=== PATIENT | female | born 1975 | race Caucasian/White ===

== ENCOUNTER 2016-12-15 14:21 | Inpatient (IN) | payer OTHER ==
[~2016-12-15] VITALS: Ht 157.5 cm; Wt 77.3 kg
[~2016-12-15 14:21] MED LIST: PREN1TAB49
[2016-12-15 15:27] LABS: ADD SCAN DIFF NO
[2016-12-15 15:29] LABS: BASOPHILS % 0.3 % (0.0-2.0); EOSINOPHILS # 0.1 10^3/ul (0.0-0.5); EOSINOPHILS % 0.9 % (0.0-7.0); LYMPHOCYTES % 22.9 % (15.0-51.0); MEAN CORPUSCULAR HEMOGLOBIN 31.5 pg (29.0-33.0); MEAN CORPUSCULAR HGB CONC 34.2 g/dl (32.0-37.0); MEAN PLATELET VOLUME 8.7 fl (7.4-10.4); MONOCYTE # 0.6 10^3/ul (0.3-0.9); MONOCYTES % 6.8 % (0.0-11.0); NEUTROPHIL # 5.8 10^3/ul (1.6-7.5); NEUTROPHILS % 66.5 % (39.0-77.0); PLATELET COUNT 260 10^3/UL (140-415); RED BLOOD COUNT 4.13 10^6/ul (4.20-5.40); RED CELL DISTRIBUTION WIDTH 13.5 % (11.5-14.5); WHITE BLOOD COUNT 8.7 10^3/ul (4.8-10.8)
[2016-12-15 15:32] LABS: ADD UMIC YES; URINE BILIRUBIN (Dip) NEGATIVE (NEGATIVE); URINE BLOOD (Dip) 1+ (NEGATIVE); URINE COLOR LT. YELLOW (YELLOW); URINE GLUCOSE (Dip) NEGATIVE (NEGATIVE); URINE KETONES (Dip) NEGATIVE (NEGATIVE); URINE LEUKOCYTE ESTERASE (Dip) 3+ (NEGATIVE); URINE NITRITE (Dip) NEGATIVE (NEGATIVE); URINE TOTAL PROTEIN (Dip) NEGATIVE (NEGATIVE); URINE UROBILINOGEN (Dip) 0.2 E.U./dL (0.1-1.0)
[2016-12-15 15:40] LABS: INR 0.9; PARTIAL THROMBOPLASTIN TIME 24.4 Sec (25.0-35.0); PROTIME 12.1 Sec (12.2-14.2); PT RATIO 0.9
[2016-12-15 15:46] LABS: ALBUMIN 3.1 g/dl (3.3-4.9)
[2016-12-15 15:47] LABS: POTASSIUM 3.8 mmol/L (3.5-5.1)
[2016-12-15 15:49] LABS: ALBUMIN/GLOBULIN RATIO 0.88; BILIRUBIN,INDIRECT 0.2 mg/dl (0-1.1); BILIRUBIN,TOTAL 0.2 mg/dl (0.2-1.3); CREATININE 0.44 mg/dl (0.44-1.00); TOTAL PROTEIN 6.6 g/dl (6.1-8.1)
[2016-12-15 15:50] LABS: CALCIUM 8.7 mg/dl (8.4-10.2); URIC ACID 5.5 mg/dl (3.1-7.9)
[2016-12-15 15:57] LABS: BACTERIA,URINE MODERATE; SQUAMOUS EPITHELIAL CELL,UR MANY
--- NOTE | 2016-12-15 16:02 | RADRPT ---
PROCEDURE: OB ultrasound for biophysical profile CLINICAL INDICATION: 90 induced hypertension. TECHNIQUE: Multiple sonographic images of the pelvis were obtained. Transabdominal view of the gr avid uterus are available for review. The images were reviewed on a PACS workstation. COMPARISON: OB ultrasound 12/09/2016 FINDINGS: breathing movement = 2/2 tone = 2/2 motion = 2/2 ROMMEL = 2/2 ROMMEL = 22.2 cm, consistent with borderline polyhydramnios. Single live intrauterine with cardiac activity. heart rate equals 148 beats p er minute. Presentation is cephalic. The placenta is anterior. IMPRESSION: 1. Single viable intrauterine gestation. 2. Biophysical profile = 8. 3. ROMMEL = 22.2 cm, consistent with borderline polyhydramnios. RPTAT: KK .Alexey Moore MD, Date Time Electronically viewed and signed by .Alexey Moore MD, MD on 12/15/2016 16:02 .B/
--- NOTE | 2016-12-15 16:04 | RADRPT ---
PROCEDURE: US OB - Limited weight. CLINICAL INDICATION: induced hypertension TECHNIQUE: Multiple sonographic images of the pelvis were obtained. Transabdominal imaging only w as performed. The images were reviewed on a PACS workstation. COMPARISON: OB ultrasound 12/09/2016 FINDINGS: There is a single viable intrauterine gestation. Cardiac activity is present with 157 beats per min mendy. There is a cephalic presentation. Measurements were made in order to determine age. The results are as follows: BPD = 8.68 cm HC = 31.56 cm AC = 37.89 cm FL = 7.3 .cm Estimated gestational age of approximately 37 weeks 4 days +/ - 2 weeks 4 days by ultrasound evalua tion The estimated date of delivery is 01/01/2017 by ultrasound evaluation. The EFW = 3745 +/- 561.7 (89.2%). The placenta is anterior. IMPRESSION: 1. Single viable intrauterine gestation of approximately 37 weeks 4 days gestation with estimated d ate of delivery of 01/01/2017 by ultrasound evaluation. 2. The estimated weight is 3745 (89.2%) . RPTAT: KK .Alexey Moore MD, Date Time Electronically viewed and signed by .Alexey Moore MD, MD on 12/15/2016 16:04 .B/
--- NOTE | 2016-12-15 16:24 | TRIAGE ---
OB Triage Datetime Report Generated by CPN: 12/15/2016 16:23 Datetime: 12/15/2016 15:20 DTR's/Clonus: DTRs 2+; No Clonus Headache: Denies Labor Evaluation Frequency: 5-6 Monitor Mode: External Duration (sec)2399: 60-70 Quality: Mild Pattern: Normal: <= 5 Contractions in 10 Minutes Resting Tone [place]: Relaxed Heart Rate FHR Baseline Rate: 150 Monitor Mode: External US FHR Baseline Changes: No Baseline Change Variability: Moderate 6-25 bpm Accelerations: 15X15 Decelerations: None Category: Category I Membrane Status: Intact Datetime: 12/15/2016 14:53 Vaginal Exam Dilatation (cms): 1.0 Effacement (%): 50 Station: -3 Exam By: LEXX SUAREZ Vaginal Bleeding: None Cervix, Consistency: Firm Cervix, Position: Posterior Presentation 'A': Unable to Assess Lie 'A': Unable to Assess Datetime: 12/15/2016 14:52 Stage of : OB Triage Maternal Assessment Level of Consciousness: Fully Conscious DTR's/Clonus: DTRs 2+; No Clonus Headache: Denies Blurred Vision: No Respiratory Effort: Unlabored Breath Sounds, Left: Clear and Equal Breath Sounds, Right: Clear and Equal Nausea/Vomiting: Denies RUQ Epigastric Pain: Denies Facial Edema: None Labor Evaluation Frequency: 0 Monitor Mode: External Duration (sec)2399: 0 Resting Tone [place]: Relaxed Heart Rate FHR Baseline Rate: 150 Monitor Mode: External US FHR Baseline Changes: No Baseline Change Variability: Moderate 6-25 bpm Accelerations: 15X15 Decelerations: None Category: Category I Pain Assessment Pain Scale: 0 Pain Presence: None/Denies Pain Type: N/A Pain Goal: 0 Pain Relief Measures: Comfort Measures Membrane Status: Intact Datetime: 12/15/2016 14:45 Time of Arrival: 12/15/2016 14:15 EGA: 38.0 Arrived By: Wheelchair Arrived From: Office Chief Complaint: R/O PIH Movement: Present Contractions: Denies/Absent Rupture of Membranes: Denies Vaginal Bleeding: None Vaginal Discharge: Denies Recent Sexual Intercouse: Denies Abdominal Trauma: Not Applicable Patient Complaints: None Time Provider Notified: 12/15/2016 14:45 Provider Notified: MAXI
[2016-12-15] MEDS ORDERED: LACTATED RINGER'S 1,000 ML IV PRN (17:30)
[2016-12-15] MEDS ORDERED: BUTORPHANOL 2 MG INJ IV PRN (18:30)
[2016-12-15] MEDS ORDERED: CARBOPROST 250 MCG INJ IM PRN (18:30)
[2016-12-15] MEDS ORDERED: LIDOCAINE 1% (MPF) 30 ML INJ INJ PRN (18:30)
[2016-12-15] MEDS ORDERED: MISOPROSTOL 200 MCG TAB PR PRN (18:30)
[2016-12-15] MEDS ORDERED: METHYLERGONOVINE 0.2 MG INJ IM PRN (18:30)
[2016-12-15] MEDS ORDERED: AMPICILLIN 2 GM/NS (PMX) 100 ML IV ONE (18:30)
[2016-12-15] MEDS ORDERED: OXYTOCIN 30 UNITS/LR 500 ML IV PRN (18:30)
[2016-12-15] MEDS ORDERED: OXYTOCIN 30 UNITS/LR 500 ML IV SCH ×2 (18:30)
[2016-12-15] MEDS: LACTATED RINGER'S 1,000 ML IV SCH (18:39)
[2016-12-15 18:46] VITALS: Ht 157.5 cm; Wt 77.3 kg
[2016-12-15 18:47] VITALS: BP 129/72; PULSE 83; RESP 18
[2016-12-15] MEDS: AMPICILLIN 1 GM/NS (PMX) 50 ML IV SCH (22:50)
[2016-12-16] MEDS: OXYTOCIN 30 UNITS/LR 500 ML IV SCH (00:55)
[2016-12-16] MEDS: LACTATED RINGER'S 1,000 ML IV SCH ×3 (02:12→19:45)
[2016-12-16] MEDS ORDERED: FENTAnyl 2MCG/ML-ROPIV 0.2% 100 ML ONE (02:27)
[2016-12-16] MEDS: AMPICILLIN 1 GM/NS (PMX) 50 ML IV SCH ×4 (02:33→12:52)
[2016-12-16] MEDS ORDERED: ONDANSETRON 4 MG INJ IV PRN ×2 (03:00)
[2016-12-16] MEDS ORDERED: NALOXONE (0.4 MG/ML) INJ IV PRN ×2 (03:00)
[2016-12-16] MEDS ORDERED: DIPHENHYDRAMINE 50 MG INJ IV PRN ×2 (03:00)
[2016-12-16] MEDS ORDERED: FENTAnyl 2MCG/ML-ROPIV 0.2% 100 ML BAG EPI SCH (03:00)
[2016-12-16] MEDS: FENTAnyl 2MCG/ML-ROPIV 0.2% 100 ML BAG EPI SCH ×2 (09:48→17:03)
[2016-12-17] MEDS: FENTAnyl 2MCG/ML-ROPIV 0.2% 100 ML BAG EPI SCH ×2 (01:15→09:17)
[2016-12-17] MEDS: LACTATED RINGER'S 1,000 ML IV SCH ×3 (03:47→19:43)
[2016-12-17] MEDS ORDERED: IBUPROFEN 600 MG TAB PO PRN (09:00)
[2016-12-17 14:02] LABS: BARBITURATES Negative (NEGATIVE); BENZODIAZEPINES Negative (NEGATIVE); CANNABINOIDS Negative (NEGATIVE); COCAINE Negative (NEGATIVE); OPIATES Negative (NEGATIVE)
[2016-12-17] MEDS: OXYTOCIN 30 UNITS/LR 500 ML IV SCH ×2 (14:31→17:40)
--- NOTE | 2016-12-17 14:35 | LDN ---
Date/Time of Note Date/Time of Note DATE: 12/17/16 TIME: 14:30 Delivery Summary Normal spontaneous vaginal delivery of baby girl from OA position shoulders delivered without difficulty posterior shoulder for then anterior shoulder the rest of the baby's body followed, cord clamp after stopped pulsation placenta spontaneous expulsion, inspected complete, no perineal laceration estimated blood loss 200 mL Placenta Delivered: Spontaneously Meconium: none Perineum intact?: Yes Anesthesia type: Epidural Sponge & Needle done & correct: Yes All needle counts correct: Yes Any foreign bodies felt in the: No Problems: Infant Delivery Information Sex Infant Sex: female Apgars 1 Minute: 9 5 Minute: 9 Suctioning Nose & mouth suctioned at nik: Yes Delee suction performed: No Umbilical Cord Umbilical cord with: 3 Vessels Cord Blood was obtained: Yes YUMIKO GERMAN MD Dec 17, 2016 14:34
--- NOTE | 2016-12-17 14:51 | HP ---
Date/Time of Note Date/Time of Note DATE: 12/17/16 TIME: 14:35 OB - History Hx of Present Free Text/Dictation 41 years old female 5 para 4 admitted to [facility] at 38 weeks gestation to rule out PIH laboratory work for - induced hypertension within normal since patient was experiencing total body itching mostly lower half of the body possibility of cholestasis of was discussed with her, induction of labor recommended ,all her questions answered then she transferred to labor and delivery room for induction. Chief Complaint: 38 weeks suspected PIH possible cholestasis of Estimated Due Date: Dec 29, 2016 : 5 Para: 4 Care: Good Care Ultrasounds: Normal mid trimester US Obstetrical Complications: Gestational Diabetes Medical Complications: None Past Family/Social History * Past Medical, Surgical, Family and Obstetric Histories reviewed from chart. Rubella: immune RPR/VDRL: Negative GBS Status: Negative HBsAG: Negative OB Admission Exam Vital Signs Vital Signs Vital Signs Date Time Temp Pulse Resp B/P Pulse Ox O2 Delivery O2 Flow Rate FiO2 12/15/16 18:47 98.6 83 18 129/72 Room Air Physical Exam HEENT: WNL Heart: Rhythm Normal Lungs: Clear, Equal Abdomen: WNL Extremities: Normal Reflexes: Normal Cervical Dilatation: 1cm Effacement: 50% Station: -3 Membranes: Intact Accelerations: Accelerations Present Decelerations: No Decelerations Varibility: Absent Last 72 hourBlood Glucose Bedside Glucose - 72 Hours Test 12/15/16 19:42 12/15/16 23:30 12/16/16 03:37 12/16/16 07:40 Bedside Glucose 102mg/dL (70-220) 100mg/dL (70-220) 108mg/dL (70-220) 102mg/dL (70-220) Test 12/16/16 11:50 12/16/16 19:36 12/17/16 01:44 12/17/16 07:39 Bedside Glucose 103mg/dL (70-220) 103mg/dL (70-220) 116mg/dL (70-220) 114mg/dL (70-220) Test 12/17/16 11:28 Bedside Glucose 120mg/dL (70-220) Last 72 hours Lab Results CBC & BMP 12/15/16 15:12 Liver Function Test 12/15/16 15:12 Alanine Aminotransferase (ALT/SGPT) 17 Albumin 3.1 L Alkaline Phosphatase 188 H Aspartate Amino Transf (AST/SGOT) 20 Direct Bilirubin 0.00 Total Protein 6.6 OB Assessment/Plan Reason for admission: induction of labor YUMIKO GERMAN MD Dec 17, 2016 14:45
[2016-12-17 15:14] LABS: RUBELLA ANTIBODY - IGG 2.13 index
[2016-12-17 16:45] VITALS: BP 138/67; PULSE 85; RESP 18
[2016-12-17] MEDS ORDERED: ACETAMINOPHEN/CODEINE #3 TAB PO PRN ×2 (17:00)
[2016-12-17] MEDS ORDERED: DIBUCAINE 1% 30 GM OINT PR PRN (17:00)
[2016-12-17] MEDS ORDERED: ACETAMINOPHEN 325 MG TAB PO PRN (17:00)
[2016-12-17] MEDS ORDERED: LANOLIN 7 GM TUBE TOP PRN (17:00)
[2016-12-17] MEDS ORDERED: WITCH HAZEL/GLYCERIN PAD PR PRN (17:00)
[2016-12-17] MEDS ORDERED: ONDANSETRON 4 MG INJ IV PRN (17:00)
[2016-12-17] MEDS ORDERED: BENZOCAINE 20% 56 ML SPRAY TOP PRN (17:00)
[2016-12-17] MEDS ORDERED: OXYCODONE/ASPIRIN (4.88/325) TAB PO PRN ×2 (17:00)
[2016-12-17] MEDS: IBUPROFEN 600 MG TAB PO SCH (17:50)
[2016-12-17 19:40] VITALS: BP 138/66; PULSE 82; RESP 18
[2016-12-17] MEDS: SENNA/DOCUSATE NA (8.6MG/50MG) TAB PO SCH (20:38)
[2016-12-18 00:05] VITALS: BP 132/68; RESP 18
[2016-12-18] MEDS: IBUPROFEN 600 MG TAB PO SCH ×4 (00:10→17:42)
[2016-12-18 04:20] VITALS: BP 128/64; PULSE 70; RESP 18
[2016-12-18 06:03] LABS: ADD SCAN DIFF NO
[2016-12-18 06:10] LABS: BASOPHIL # 0.1 10^3/ul (0.0-0.1); BASOPHILS % 0.2 % (0.0-2.0); EOSINOPHILS % 0.1 % (0.0-7.0); HEMATOCRIT 33.1 % (37.0-47.0); HEMOGLOBIN 11.6 g/dl (12.0-16.0); LYMPHOCYTES # 1.8 10^3/ul (0.8-2.9); LYMPHOCYTES % 8.5 % (15.0-51.0); MEAN CORPUSCULAR HEMOGLOBIN 32.4 pg (29.0-33.0); MEAN CORPUSCULAR VOLUME 92.5 fl (82.0-101.0); MEAN PLATELET VOLUME 8.8 fl (7.4-10.4); MONOCYTE # 1.2 10^3/ul (0.3-0.9); MONOCYTES % 5.7 % (0.0-11.0); NEUTROPHIL # 17.5 10^3/ul (1.6-7.5); PLATELET COUNT 237 10^3/UL (140-415); RED BLOOD COUNT 3.58 10^6/ul (4.20-5.40); RED CELL DISTRIBUTION WIDTH 13.3 % (11.5-14.5); WHITE BLOOD COUNT 21.1 10^3/ul (4.8-10.8)
[2016-12-18 08:00] VITALS: BP 124/79; PULSE 77; RESP 18
[2016-12-18] MEDS: SENNA/DOCUSATE NA (8.6MG/50MG) TAB PO SCH ×2 (08:24→21:00)
[2016-12-18] MEDS: OXYTOCIN 30 UNITS/LR 500 ML IV SCH (08:26)
--- NOTE | 2016-12-18 09:49 | QN ---
Documentation Comment PPD #1 No C/o. . T=98.2 BP 128/64 Fundus firm Lochia moderate. Ext NT, 1+ edema. WBC 21.1 Hgb 11.6 P: Continue care. Repeat CBC in [place]. CHAO LUNA MD Dec 18, 2016 09:49
[2016-12-18 12:19] VITALS: BP 129/81; PULSE 91; RESP 18
[2016-12-18 15:00] VITALS: BP 123/78; PULSE 90; RESP 18
[2016-12-18 19:30] VITALS: BP 119/69; PULSE 74; RESP 20
[2016-12-19] MEDS: IBUPROFEN 600 MG TAB PO SCH ×4 (00:17→17:41)
[2016-12-19 04:23] VITALS: BP 121/60; PULSE 70; RESP 20
[2016-12-19 08:00] VITALS: BP 117/65; PULSE 86; RESP 17
[2016-12-19 08:16] LABS: ADD SCAN DIFF NO
[2016-12-19 08:43] LABS: BASOPHILS % 0.4 % (0.0-2.0); EOSINOPHILS # 0.2 10^3/ul (0.0-0.5); EOSINOPHILS % 1.6 % (0.0-7.0); HEMATOCRIT 29.5 % (37.0-47.0); HEMOGLOBIN 10.1 g/dl (12.0-16.0); LYMPHOCYTES # 2.7 10^3/ul (0.8-2.9); LYMPHOCYTES % 25.6 % (15.0-51.0); MEAN CORPUSCULAR HEMOGLOBIN 32.3 pg (29.0-33.0); MEAN CORPUSCULAR HGB CONC 34.2 g/dl (32.0-37.0); MEAN CORPUSCULAR VOLUME 94.2 fl (82.0-101.0); MEAN PLATELET VOLUME 8.8 fl (7.4-10.4); MONOCYTE # 0.7 10^3/ul (0.3-0.9); MONOCYTES % 7.1 % (0.0-11.0); NEUTROPHIL # 6.5 10^3/ul (1.6-7.5); NEUTROPHILS % 61.8 % (39.0-77.0); PLATELET COUNT 217 10^3/UL (140-415); RED BLOOD COUNT 3.13 10^6/ul (4.20-5.40); WHITE BLOOD COUNT 10.5 10^3/ul (4.8-10.8)
[2016-12-19] MEDS ORDERED: MEASLES,MUMPS,RUBELLA VACCINE INJ SC* ONE (09:00)
[2016-12-19] MEDS: SENNA/DOCUSATE NA (8.6MG/50MG) TAB PO SCH (09:00)
--- NOTE | 2016-12-19 12:29 | PD.PPDC ---
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
--- NOTE | 2016-12-19 12:31 | DS ---
Date/Time of Note Date/Time of Note DATE: 12/19/16 TIME: 12:30 Obstetrical Discharge Record Final Diagnosis Final Diagnosis: Term delivered Vaginal Delivery Obstetrical Delivery: Spontaneous Condition on Discharge Physical Assessment Last Vitals: day 2 Vital signs stable afebrile abdomen soft uterus firm lochia normal extremity normal Bowel Movement: Yes Breast: Soft, non-tender, Filling Fundus: Firm Calf Tenderness: No Patient Condition: Good YUMIKO GERMAN MD Dec 19, 2016 12:31
[2016-12-19 16:00] VITALS: BP 127/65; PULSE 86; RESP 17
== END 2016-12-19 18:35 | disposition home or self-care (01) | DRG 775 ==
LOC: OBT 14:21 → L-D 14:22 → OBT 16:15 → L-D 17:35 → PP1 12-17 16:53
PROVIDERS: ADMIT Obstetrics & Gynecology; ATTEND Obstetrics & Gynecology
PROC: 10E0XZZ Delivery of Products of Conception, External Approach (ICD-10-PCS; principal; 2016-12-17)
DX: O24.429 Gestational diabetes mellitus in childbirth, unspecified control (principal); Z37.0 Single live birth; Z3A.38 38 weeks gestation of pregnancy
CPT/HCPCS: 36415; 62319; 76815; 76818; 80053; 80307; 81001; 81003; 82947; 82962; 84560; 85025; 85610; 85730; 86592; 86703; 86762; 86900; 86901; 87340; 99464; G0463; J0290; J2590; J3010; J7120